=== PATIENT | female | born 2000 | race Two or more races ===

== ENCOUNTER 2021-02-06 15:16 | Emergency (ER) | payer OTHER ==
[~2021-02-06] VITALS: Ht 172.7 cm; Wt 59.0 kg
[2021-02-06] MEDS ORDERED: CLEOCIN HCL300 MG PO (15:56)
== END 2021-02-06 18:13 | disposition home or self-care (01) ==
LOC: EMR PED 15:16 → ER 15:16 → EMR PED 15:52
DX: L73.1 Pseudofolliculitis barbae (principal); L05.91 Pilonidal cyst without abscess